=== PATIENT | male | born 1980 | race Caucasian/White ===

== ENCOUNTER → 2019-02-27 | Outpatient (CLI) | payer OTHER ==
[~2019-02-27] MED LIST: DIP50I IV; ONDA4TAB PO; RAN150 PO
--- NOTE | 2019-02-27 11:27 | EKG ---
[place] [facility] [place] MARTHA SPICER : [id number] MR: [id number] V: [id number] EXAM DATE: ORDERING PHYSICIAN: WILLIAM VIGIL TECHNOLOGIST: NERY Garza Reason : CHEST PAIN Blood Pressure : / mmHG Vent. Rate : 072 BPM Atrial Rate : 072 BPM P-R Int : 164 ms QRS Dur : 092 ms QT Int : 384 ms P-R-T Axes : 054 012 042 degrees QTc Int : 420 ms Sinus rhythm Decreased R wave progression anteriorly Borderline left axis No acute appearing ST-T findings No previous ECGs available Confirmed by JEFF GARG ([id number] on 02/27/2019 2:50:55 PM Referred By: YARITZA Confirmed By:JEFF GARG
--- NOTE | 2019-02-27 13:04 | RADIOLOGY IMAGING REPORT ---
FACILITY: [facility] PATIENT NAME: Dav Morgan : 1980 MR: [id number] V: [id number] EXAM DATE: ORDERING PHYSICIAN: WILLIAM VIGIL TECHNOLOGIST: Location: [facility] Patient: Dav Morgan : 1980 Visit/Account:[id number] Date of Sevice: 02/27/2019 2 VIEWS CHEST INDICATION: Chest pain and tightness. Shortness of breath with walking. COMPARISON: None available FINDINGS: The lungs are clear. No effusion or pneumothorax is seen. Heart size and mediastinal contours are nor mal. IMPRESSION: 1. No radiographic evidence of active disease. Report Dictated By: Fidencio Arellano at 02/27/2019 12:57 PM Report E-Signed By: Fidencio Arellano at 02/27/2019 1:00 PM WSN:[id number]
== END ==
LOC: RESP 10:54
PROVIDERS: ATTEND Family Medicine
DX: R07.9 Chest pain, unspecified (principal)
CPT/HCPCS: 71046; 93005

== ENCOUNTER → 2019-03-08 | Outpatient (CLI) | payer OTHER ==
--- NOTE | 2019-04-06 09:06 | RT STRESS TEST REPORT ---
FACILITY: [facility] [place] PATIENT NAME: MARTHA SPICER : [id number] MR: [id number] V: [id number] EXAM DATE: ORDERING PHYSICIAN: WILLIAM VIGIL TECHNOLOGIST: Pradip Acquisition Time: 2019-03-08 08:41:32 Total Exercise Time: 00:08:43 Test Indications: Chest Pain / Discomfort Medications: Protocol: [id number] Max HR: 184 BPM 100% of Pred: 184 BPM Max BP: 189/073 mmHG Max Work Load: 10.4 METS No ischemic changes noted during the test )2 saturation decreased during the test Impression No EKG changes to suggest ischemia Confirmed by GERMAN WEINER ([id number]) on 04/06/2019 9:04:47 AM Referred By: Overread By: GERMAN WEINER
== END ==
LOC: RESP 08:46
PROVIDERS: ATTEND Family Medicine
DX: R07.9 Chest pain, unspecified (principal); R03.0 Elevated blood-pressure reading, without diagnosis of hypertension; R42 Dizziness and giddiness
CPT/HCPCS: 93017